=== PATIENT | male | born 1970 | race Caucasian/White ===

== ENCOUNTER 2023-01-09 12:58 | Day surgery (SDC) | payer BC ==
[~2023-01-09] VITALS: Ht 182.9 cm; Wt 101.7 kg
[2023-01-09 16:23] VITALS: BP 109/74
--- NOTE | 2023-01-09 16:24 | NUR ---
01/09/23 1624 Tobias Benitez DIVERTICULOSIS AND FIBER PAMPHLETS GIVEN PER . AT BEDSIDE WITH DISCHARGE INSTRUCTIONS.
== END 2023-01-09 16:15 | disposition home or self-care (01) ==
LOC: ORSCSDS 12:58
PROVIDERS: Internal Medicine Gastroenterology
PROC: 0DBN8ZX Excision of Sigmoid Colon, Via Natural or Artificial Opening Endoscopic, Diagnostic (ICD-10-PCS; principal; 2023-01-09 14:15)
PROC: 0DBM8ZX Excision of Descending Colon, Via Natural or Artificial Opening Endoscopic, Diagnostic (ICD-10-PCS; principal; 2023-01-09 14:15)
PROC: 0DBL8ZX Excision of Transverse Colon, Via Natural or Artificial Opening Endoscopic, Diagnostic (ICD-10-PCS; principal; 2023-01-09 14:15)
DX: Z12.11 Encounter for screening for malignant neoplasm of colon (principal); D12.3 Benign neoplasm of transverse colon; D12.4 Benign neoplasm of descending colon; K63.5 Polyp of colon; K57.30 Diverticulosis of large intestine without perforation or abscess without bleeding
CPT/HCPCS: 88305; J2704; J7120

== ENCOUNTER → 2024-09-15 | Outpatient (CLI) | payer BC | LOC: LAB 14:19 → LAB SHORT 14:19 | DX: R31.29 Other microscopic hematuria (principal) | CPT/HCPCS: 87086 ==